=== PATIENT | female | born 1990 | race Caucasian/White ===

== ENCOUNTER 2017-01-10 20:27 | Emergency (ER) | payer OTHER ==
[2017-01-10 20:49] VITALS: BP 118/67; PULSE 93; TEMP 99; BMI 35.5
--- NOTE | 2017-01-11 00:42 | PDOC ---
History of Present Illness - General History Source: Patient Exam Limitations: No Limitations - History of Present Illness Initial Comments: 01/11/17 00:43 The patient is a 26 year old female with no significant past medical history who presents to the ED with right ankle pain and swelling s/p fall today. Patient reports around 1:30pm she was jumping on a trampoline when she inverted her right ankle causing her to fall. She sustained pain and swelling to the right ankle. Denies any head trauma or LOC. Also reports some numbness and tingling to the area that resolved on its own a hour later. Patient reports slight radiation of the pain down to the center of the foot when ambulating. Patient ambulates with a limp. Denies knee pain. The patient denies fever, chills, cough, SOB, chest pain, and palpitations. The patient denies abdominal pain, nausea, vomiting, and diarrhea. Allergies: NKDA Social History: No alcohol, tobacco, or drug use reported. Past Surgical History: None reported PCP: Dr. Alma Pratt <Aria Sprague - Last Filed: 01/11/17 00:45> - General History Source: Patient <KirillAnil velez - Last Filed: 01/11/17 00:53> - General Chief Complaint: Injury Stated Complaint: INJURY Time Seen by Provider: 01/10/17 23:32 Past History <Aria Sprague - Last Filed: 01/11/17 00:45> - Past Medical History Other medical history: denies - Immunization History Immunization Up to Date: Yes - Psycho/Social/Smoking Cessation Hx Anxiety: No Suicidal Ideation: No Smoking Status: No Smoking History: Never smoked Have you smoked in the past 12 months: No Number of Cigarettes Smoked Daily: 0 Information on smoking cessation initiated: No Hx Alcohol Use: No Drug/Substance Use Hx: No Substance Use Type: None <Anil Pope - Last Filed: 01/11/17 00:53> - Past Medical History Allergies/Adverse Reactions: Allergies Allergy/AdvReac Type Severity Reaction Status Date / Time No Known Allergies Allergy Verified 01/10/17 20:45 Home Medications: Ambulatory Orders NK [No Known Home Medication] 01/10/17 Review of Systems - Review of Systems Able to Perform ROS?: Yes Comments:: 01/11/17 00:43 CONSTITUTIONAL: Absent: fever, no chills, no fatigue EYES: Absent: visual changes ENT: Absent: ear pain, no sore throat CARDIOVASCULAR: Absent: chest pain, no palpitations RESPIRATORY: Absent: cough, no SOB GI: Absent: abdominal pain, no nausea, no vomiting, no constipation, no diarrhea GENITOURINARY: Absent: dysuria, no frequency, no hematuria MUSCULOSKELETAL: +R ankle pain and swelling Absent: back pain, no myalgia SKIN: Absent: rash NEURO: Absent: headache <Aria Sprague - Last Filed: 01/11/17 00:45> *Physical Exam - Vital Signs Last Vital Signs Temp Pulse Resp BP Pulse Ox 99.0 F 93 H 20 118/67 99 01/10/17 20:45 01/10/17 20:45 01/10/17 20:45 01/10/17 20:45 01/10/17 20:45 - Physical Exam Comments: 01/11/17 00:44 GENERAL: Well-appearing, well-nourished. No apparent distress. HEENT: Normocephalic, atraumatic. PERRL, EOM intact. CARDIOVASCULAR: Normal S1, S2. Regular rate and rhythm. PULMONARY: Clear to auscultation bilaterally. ABDOMEN: Soft, non-distended, non-tender. EXTREMITIES: Normal ROM in all four extremities. Swelling to the lateral malleolus. Pain to palpation at lateral malleolus and at the base of the tibia. Diffuse swelling throughout. No gross deformities. SKIN: Warm, dry. No rash NEUROLOGICAL: No focal neurological deficits. <Aria Sprague - Last Filed: 01/11/17 00:45> - Vital Signs Last Vital Signs Temp Pulse Resp BP Pulse Ox 99.0 F 93 H 20 118/67 99 01/10/17 20:45 01/10/17 20:45 01/10/17 20:45 01/10/17 20:45 01/10/17 20:45 <Anil Pope - Last Filed: 01/11/17 00:53> ED Treatment Course - RADIOLOGY Radiograph Interpretation: 01/11/17 00:45 EXAM: X-RAY RIGHT ANKLE AND FOOT Reviewed by Imaging contract administrator: No acute fracture or dislocation. No radiopaque foreign body. <Aria Sprague - Last Filed: 01/11/17 00:45> - RADIOLOGY Radiology Studies Ordered: Category Date Time Status ANKLE & FOOT-RIGHT* [RAD] Stat Radiology 01/10/17 23:33 Taken <Anil Pope - Last Filed: 01/11/17 00:53> Medical Decision Making - Medical Decision Making 01/11/17 00:53 Dr. Pope: The scribe's documentation has been prepared under my direction and personally reviewed by me in its entirery. I confirm that the note above accurately reflects all work, treatment, procedures, and medical decision making performed by me. <Anil Pope - Last Filed: 01/11/17 00:53> *DC/Admit/Observation/Transfer - Attestations Scribe Attestion: 01/11/17 00:45 Documentation prepared by Aria Sprague, acting as lpn or medical assistant for Anil Pope MD <Aria Sprague - Last Filed: 01/11/17 00:45> - Discharge Dispostion Admit: No <Anil Pope - Last Filed: 01/11/17 00:53> Diagnosis at time of Disposition: Ankle sprain Qualifiers: Encounter type: initial encounter Laterality: right - Discharge Dispostion Disposition: HOME Condition at time of disposition: Stable - Referrals Referrals: Alma Pratt MD [Primary Care Provider] - Carlos Golden MD [Staff Physician] - - Patient Instructions Printed Discharge Instructions: DI for Ankle Sprain
== END 2017-01-11 00:59 | disposition home or self-care (01) ==
LOC: JER 20:27 → JERFT 20:27 → JER 01-11 00:59
DX: S93.401A Sprain of unspecified ligament of right ankle, initial encounter (principal); X58.XXXA Exposure to other specified factors, initial encounter; Y93.44 Activity, trampolining; Y92.9 Unspecified place or not applicable
CPT/HCPCS: 73610-TC-RT; 73630-TC-RT; 99282-25